=== PATIENT | male | born 1965 | race Caucasian/White ===

== ENCOUNTER 2018-07-10 10:25 | Observation (INO) | payer BC ==
[2018-07-10] MEDS ORDERED: ONDANSETRON 4 MG/2 ML VIAL IVP STA (11:29)
[2018-07-10] MEDS ORDERED: SODIUM CHLORIDE 0.9% 1,000 ML IV STA (11:29)
[2018-07-10] MEDS ORDERED: KETOROLAC 30 MG/ML 1 ML VIAL IVP STA (11:29)
[2018-07-10] MEDS ORDERED: MORPHINE SULFATE 4 MG/ML SYRINGE IV STA (11:29)
--- NOTE | 2018-07-10 11:55 | ED ---
Abdominal Pain HPI - General Chief Complaint: Abdominal Pain Stated Complaint: abdominal pain Time Seen by Provider: 07/10/18 11:07 Source: patient, RN notes reviewed, old records reviewed Mode of arrival: ambulatory - History of Present Illness Initial Comments: Pelvis a 52-year-old male who presents emergency department today with complaints of severe left-sided abdominal distention and pain. Patient states that he had a bowel movement yesterday. He reports has not been passing gas. Patient states that he has had slight cough the past week, he is getting over it at this time. He complained of some abdominal muscle discomfort. Patient denies any fever or chills. Denies any associated back pain. He complains of vertiginous and distention and nausea. - Related Data Home Medications Medication Instructions Recorded Confirmed No Known Home Medications 07/10/18 07/10/18 Allergies Allergy/AdvReac Type Severity Reaction Status Date / Time No Known Allergies Allergy Unverified 07/10/18 11:29 Review of Systems ROS Statement: Those systems with pertinent positive or pertinent negative responses have been documented in the HPI. ROS Other: All systems not noted in ROS Statement are negative. Past Medical History Past Medical History: No Reported History History of Any Multi-Drug Resistant Organisms: None Reported Past Surgical History: No Surgical Hx Reported Past Psychological History: No Psychological Hx Reported Smoking Status: Never smoker Past Alcohol Use History: None Reported Past Drug Use History: None Reported General Exam - General Exam Comments Initial Comments: This is a 52-year-old male. Alert and oriented 3. Patient appears in moderate discomfort. General appearance: alert, in no apparent distress Head exam: Present: atraumatic, normocephalic, normal inspection Eye exam: Present: normal appearance, PERRL, EOMI. Absent: scleral icterus, conjunctival injection, periorbital swelling ENT exam: Present: normal exam, mucous membranes moist Neck exam: Present: normal inspection. Absent: tenderness, meningismus, lymphadenopathy Respiratory exam: Present: normal lung sounds bilaterally. Absent: respiratory distress, wheezes, rales, rhonchi, stridor Cardiovascular Exam: Present: regular rate, normal rhythm, normal heart sounds. Absent: systolic murmur, diastolic murmur, rubs, gallop, clicks GI/Abdominal exam: Present: distended (Left sided abdominal distention), normal bowel sounds. Absent: soft, tenderness, guarding, rebound, rigid Extremities exam: Present: normal inspection, full ROM, normal capillary refill. Absent: tenderness, pedal edema, joint swelling, calf tenderness Back exam: Present: normal inspection Neurological exam: Present: alert, oriented X3, CN II-XII intact Psychiatric exam: Present: normal affect, normal mood Skin exam: Present: warm, dry, intact, normal color. Absent: rash Course Vital Signs 07/10/18 07/10/18 10:40 12:43 Temperature 98.0 F Pulse Rate 63 67 Respiratory 22 18 Rate Blood Pressure 169/102 152/98 O2 Sat by Pulse 100 96 Oximetry Medical Decision Making - Medical Decision Making Patient is a 52-year-old male presents for instructed today with onset of left- sided abdominal distention and pain. He has significant guarding in the pain with palpation over the left quadrant. Patient reports no falls or trauma. He did have a slight cough for last week. He's had normal stools yesterday. Patient labwork was reviewed and unremarkable. With this tenderness and distention computed tomography scan was completed. There is evidence of the significant rectus sheath hematoma measuring 14 cm x 6 cm x 8 7 m. Patient seemed a little bit stable. There is concern for active bleeding from the site at this time. Patient's case discussed with Dr. Harris who discussed case with Dr. Goodwin. Recommended admitting Dr. Suarez with consult to patient's PCP. Patient will be having a type and screen drawn a repeat CBCs. - Lab Data Result diagrams: 07/10/18 11:25 07/10/18 11:25 Lab Results 07/10/18 07/10/18 07/10/18 Range/Units 11:25 11:25 12:45 WBC 11.0 H (3.8-10.6) k/uL RBC 5.74 (4.30-5.90) m/uL Hgb 16.3 (13.0-17.5) gm/dL Hct 46.4 (39.0-53.0) % MCV 80.9 (80.0-100.0) fL MCH 28.4 (25.0-35.0) pg MCHC 35.1 (31.0-37.0) g/dL RDW 12.9 (11.5-15.5) % Plt Count 196 (150-450) k/uL Neutrophils % 85 % Lymphocytes % 11 % Monocytes % 3 % Eosinophils % 0 % Basophils % 0 % Neutrophils # 9.3 H (1.3-7.7) k/uL Lymphocytes # 1.2 (1.0-4.8) k/uL Monocytes # 0.3 (0-1.0) k/uL Eosinophils # 0.1 (0-0.7) k/uL Basophils # 0.0 (0-0.2) k/uL Sodium 138 (137-145) mmol/L Potassium 4.5 (3.5-5.1) mmol/L Chloride 108 H (98-107) mmol/L Carbon Dioxide 21 L (22-30) mmol/L Anion Gap 9 mmol/L BUN 18 (9-20) mg/dL Creatinine 0.89 (0.66-1.25) mg/dL Est GFR (CKD-EPI)AfAm >90 (>60 ml/min/1.73 sqM) Est GFR (CKD-EPI)NonAf >90 (>60 ml/min/1.73 sqM) Glucose 152 H (74-99) mg/dL Calcium 9.5 (8.4-10.2) mg/dL Total Bilirubin 0.9 (0.2-1.3) mg/dL AST 48 (17-59) U/L ALT 68 (21-72) U/L Alkaline Phosphatase 66 (38-126) U/L Total Protein 6.8 (6.3-8.2) g/dL Albumin 4.2 (3.5-5.0) g/dL Amylase 59 (30-110) U/L Lipase 114 (23-300) U/L Urine Color Yellow Urine Appearance Clear (Clear) Urine pH 6.0 (5.0-8.0) Ur Specific Hayes 1.048 H (1.001-1.035) Urine Protein Trace H (Negative) Urine Glucose (UA) Negative (Negative) Urine Ketones Negative (Negative) Urine Blood Negative (Negative) Urine Nitrite Negative (Negative) Urine Bilirubin Negative (Negative) Urine Urobilinogen <2.0 (<2.0) mg/dL Ur Leukocyte Esterase Negative (Negative) - Radiology Data Radiology results: report reviewed Large left rectus sheath hematoma measuring 13.7 x 8.6 and meters. Lehigh clot signs suggesting for active extravasation at the same hematoma. Correlate for any anticoagulation status and correlate for hematocrit hemoglobin most. Additionally she is intramuscular bleeding adjacent to the left anterior abdo marv wall muscle strain measuring 4.5 cm thick. Mild hepatosplenomegaly. An additional paresthesias small hiatal hernia. Disposition Clinical Impression: Rectus sheath hematoma Disposition: ADMITTED IP TO THIS HOSP Condition: Stable Is patient prescribed a controlled substance at d/c from ED?: No Referrals: Mingo Castillo MD [Primary Care Provider] - 1-2 days Time of Disposition: 13:42
[2018-07-10 12:09] LABS: ALT 68 U/L (21-72); AST 48 U/L (17-59); Albumin 4.2 g/dL (3.5-5.0); Alkaline Phosphatase 66 U/L (38-126); Amylase 59 U/L (30-110); Anion Gap 9 mmol/L; Basophils % (A) 0 %; Blood Urea Nitrogen 18 mg/dL (9-20); Calcium 9.5 mg/dL (8.4-10.2); Carbon Dioxide 21 mmol/L (22-30); Chloride 108 mmol/L (98-107); Eosinophils # (A) 0.1 k/uL (0-0.7); Eosinophils % (A) 0 %; Glucose 152 mg/dL (74-99); HCT 46.4 % (39.0-53.0); HGB 16.3 gm/dL (13.0-17.5); Lipase 114 U/L (23-300); Lymphocytes # (A) 1.2 k/uL (1.0-4.8); Lymphocytes % (A) 11 %; MCH 28.4 pg (25.0-35.0); MCHC 35.1 g/dL (31.0-37.0); MCV 80.9 fL (80.0-100.0); Mean Platelet Volume 7.9; Monocytes # (A) 0.3 k/uL (0-1.0); Monocytes % (A) 3 %; Neutrophils # (A) 9.3 k/uL (1.3-7.7); Neutrophils % (A) 85 %; Platelet Count 196 k/uL (150-450); Potassium 4.5 mmol/L (3.5-5.1); RBC 5.74 m/uL (4.30-5.90); RDW 12.9 % (11.5-15.5); Sodium 138 mmol/L (137-145); Total Bilirubin 0.9 mg/dL (0.2-1.3); Total Protein 6.8 g/dL (6.3-8.2)
--- NOTE | 2018-07-10 12:28 | XR ---
EXAMINATION TYPE: XR chest 2V DATE OF EXAM: 07/10/2018 COMPARISON: None HISTORY: Left upper quadrant pain TECHNIQUE: Frontal and lateral views of the chest are obtained. FINDINGS: There is no focal air space opacity, pleural effusion, or pneumothorax seen. The cardiac silhouette size is mildly enlarged. The osseous structures are intact. IMPRESSION: No acute cardiopulmonary process.
--- NOTE | 2018-07-10 12:32 | CT ---
EXAMINATION TYPE: CT abdomen pelvis w con DATE OF EXAM: 07/10/2018 COMPARISON: NONE HISTORY: 52-year-old male with abdominal pain TECHNIQUE: Contiguous axial scanning of the abdomen and pelvis following administration of 100 ml Iso sasha 300 IV contrast. Delayed images through the kidneys and coronal/sagittal reconstructions perform ed. CT DLP: 1568.4 mGycm Automated exposure control for dose reduction was used. FINDINGS: Heart normal size without pericardial effusion. Some strandy atelectasis or scarring in the lower jeni gs. No pleural effusion. Small hiatal hernia. Mildly ectatic aorta the thoracoabdominal junction and 2.7 cm. Incidental retroaortic left renal vein . Liver mildly enlarged at 18.6 cm with low attenuation suggesting fatty infiltration. Portal venous sy stem is patent. No biliary ductal dilatation. Gallbladder, adrenal glands, right kidney, and pancreas appear within normal limits. Spleen mildly enlarged at 15.2 cm. No dilated small bowel, free fluid, or free air. Tiny fatty umbilical hernia. Normal appendix. Mild scattered stool in the right side of the colon. No pericolonic inflammatory eveline nge. Bladder is urine distended. Small to moderate sized fatty indirect left inguinal hernia. Pelvic phleb olith. No abnormal fluid collection the pelvis or pelvic lymphadenopathy. Bones: Mild degenerative spurring at the hips. Accentuated lumbar lordosis. No osseous destructive pr ocess. There is a large focal hematoma involving the left rectus sheath with central clot sign suggesting ac tive extravasation. The hematoma measures 8.6 cm wide by 6.0 cm AP by 13.7 cm craniocaudal. However, in addition to this, there is diffuse bleeding causing asymmetric thickening of the left anterior and anterolateral abdominal wall musculature. In the supraumbilical region, the abdominal wall measures 4.5 cm thick. Just below the level of the umbilicus, asymmetric thickening measures up to 2.5 cm pres ently 1.0 cm on the other side. IMPRESSION: 1. LARGE LEFT RECTUS SHEATH HEMATOMA MEASURING 13.7 X 8.6 CM. SENTINEL CLOT SIGN SUGGESTING ACTIVE EX TRAVASATION AT THE SITE OF HEMATOMA. CORRELATE FOR ANY ANTICOAGULATION STATUS END CORRELATE WITH WIN TOCRIT/HEMOGLOBIN LEVELS. 2. ADDITIONAL MORE DIFFUSE INTRAMUSCULAR BLEEDING THICKENING THE ADJACENT LEFT ANTERIOR ABDOMINAL WAL L MUSCULATURE UP TO 4.5 CM THICK PRIMARILY ABOVE THE LEVEL OF THE UMBILICUS. 3. MILD HEPATOSPLENOMEGALY (LIVER 18.6 CM AND SPLEEN 15.2 CM). 4. ADDITIONAL HEPATIC STEATOSIS AND SMALL HIATAL HERNIA.
[2018-07-10 13:14] LABS: Appearance,Urine Clear (Clear); Bilirubin,Urine Negative (Negative); Blood,Urine Negative (Negative); Color,Urine Yellow; Glucose,Urine (UA) Negative (Negative); Ketones,Urine Negative (Negative); Leukocyte Esterase,Urine Negative (Negative); Nitrite,Urine Negative (Negative); Protein,Urine Trace (Negative); Urobilinogen,Urine <2.0 mg/dL (<2.0)
[2018-07-10 13:28] LABS: Specific Gravity,Urine 1.048 (1.001-1.035)
[2018-07-10] MEDS ORDERED: ONDANSETRON 4 MG/2 ML VIAL IVP PRN (13:42)
[2018-07-10] MEDS ORDERED: NALOXONE 0.4 MG/ML 1 ML VIAL IV PRN (13:42)
[2018-07-10] MEDS ORDERED: HYDROcodone/APAP 5-325MG 1 EACH TAB PO PRN (13:42)
[2018-07-10 14:00] LABS: Prothrombin Time 10.3 sec (9.0-12.0)
[2018-07-10] MEDS: MORPHINE SULFATE 4 MG/ML SYRINGE IV PRN ×2 (15:33→20:44)
[2018-07-10 15:58] LABS: Basophils % (A) 0 %; Eosinophils % (A) 0 %; HCT 41.1 % (39.0-53.0); HGB 14.1 gm/dL (13.0-17.5); Lymphocytes % (A) 10 %; MCH 28.4 pg (25.0-35.0); MCHC 34.4 g/dL (31.0-37.0); MCV 82.5 fL (80.0-100.0); Mean Platelet Volume 7.6; Monocytes # (A) 0.3 k/uL (0-1.0); Monocytes % (A) 3 %; Neutrophils # (A) 8.6 k/uL (1.3-7.7); Neutrophils % (A) 86 %; Platelet Count 175 k/uL (150-450); RBC 4.99 m/uL (4.30-5.90)
[2018-07-10] MEDS: SODIUM CHLORIDE 0.9% 1,000 ML IV SCH (18:29)
[2018-07-11] MEDS ORDERED: PANTOPRAZOLE 40 MG/10 ML VIAL IV SCH (09:00)
[2018-07-11 10:25] LABS: HCT 37.8 % (39.0-53.0); HGB 12.9 gm/dL (13.0-17.5); MCV 85.4 fL (80.0-100.0); Mean Platelet Volume 6.5; Platelet Count 161 k/uL (150-450); RBC 4.43 m/uL (4.30-5.90); RDW 13.1 % (11.5-15.5); WBC 9.2 k/uL (3.8-10.6)
[2018-07-11 10:44] LABS: Anion Gap 6 mmol/L; Blood Urea Nitrogen 20 mg/dL (9-20); Carbon Dioxide 26 mmol/L (22-30); Chloride 108 mmol/L (98-107); Glucose 114 mg/dL (74-99); Potassium 4.2 mmol/L (3.5-5.1); Sodium 140 mmol/L (137-145)
--- NOTE | 2018-07-11 11:13 | P.CONS ---
History of Present Illness - History of Present Illness 52-year-old healthy male presented the emergency room with complaints of pain to his left flank. Was found to have a large left rectus sheath hematoma. Noted hemoglobin on arrival 16 3 at present hemoglobin 12.9. Patient states that he's had a cough for 1 week denies any other injury Review of Systems Respiratory: Reports cough Gastrointestinal: Reports abdominal pain Past Medical History Past Medical History: No Reported History History of Any Multi-Drug Resistant Organisms: None Reported Past Surgical History: Hernia Repair Past Anesthesia/Blood Transfusion Reactions: No Reported Reaction Past Psychological History: No Psychological Hx Reported Smoking Status: Never smoker Past Alcohol Use History: None Reported Past Drug Use History: None Reported - Past Family History Father Family Medical History: Cancer Additional Family Medical History / Comment(s): prostate Mother Family Medical History: Hypertension Additional Family Medical History / Comment(s): cardiac stent Medications and Allergies Home Medications Medication Instructions Recorded Confirmed Type No Known Home Medications 07/10/18 07/10/18 History Allergies Allergy/AdvReac Type Severity Reaction Status Date / Time No Known Allergies Allergy Unverified 07/10/18 11:29 Physical Exam Vitals: Vital Signs Temp Pulse Pulse Resp BP BP Pulse Ox 07/11/18 08:00 18 07/11/18 06:33 99.3 F 92 18 151/89 92 L 07/10/18 23:00 98.7 F 81 18 150/85 95 07/10/18 16:10 98.2 F 76 20 156/100 96 07/10/18 15:25 98.0 F 68 18 162/86 97 07/10/18 12:43 67 18 152/98 96 Intake and Output 07/10/18 07/11/18 07/11/18 22:59 06:59 14:59 Intake Total 0 0 Output Total 200 Balance -200 0 Intake: Oral 0 0 Output: Urine 200 Other: Voiding Method Toilet # Voids 1 - Constitutional General appearance: mild distress - EENT Eyes: PERRLA Ears: bilateral: normal - Neck Neck: normal ROM - Respiratory Respiratory: bilateral: CTA - Cardiovascular Rhythm: regular - Gastrointestinal General gastrointestinal: soft Localized gastrointestinal: tender: LUQ - Integumentary Integumentary: normal - Neurologic Neurologic: CNII-XII intact - Musculoskeletal Musculoskeletal: generalized weakness - Psychiatric Psychiatric: A&O x's 3, appropriate affect, intact judgment & insight Results CBC & Chem 7: 07/11/18 10:04 07/11/18 10:04 Labs: Abnormal Lab Results - Last 24 Hours (Table) 07/10/18 07/10/18 07/10/18 Range/Units 11:25 11:25 12:45 WBC 11.0 H (3.8-10.6) k/uL Hgb (13.0-17.5) gm/dL Hct (39.0-53.0) % Neutrophils # 9.3 H (1.3-7.7) k/uL Chloride 108 H (98-107) mmol/L Carbon Dioxide 21 L (22-30) mmol/L Glucose 152 H (74-99) mg/dL Ur Specific Elim 1.048 H (1.001-1.035) Urine Protein Trace H (Negative) 07/10/18 07/11/18 07/11/18 Range/Units 15:23 10:04 10:04 WBC (3.8-10.6) k/uL Hgb 12.9 L (13.0-17.5) gm/dL Hct 37.8 L (39.0-53.0) % Neutrophils # 8.6 H (1.3-7.7) k/uL Chloride 108 H (98-107) mmol/L Carbon Dioxide (22-30) mmol/L Glucose 114 H (74-99) mg/dL Ur Specific Elim (1.001-1.035) Urine Protein (Negative) Chest x-ray: report reviewed CT scan - abdomen: report reviewed Assessment and Plan Plan: assessment rectus sheath hematoma large 13.7 x 8.6 cm Plan Will monitor hemoglobin aND RENAL FUNCTION
--- NOTE | 2018-07-11 13:17 | P.DS ---
Providers Date of admission: 07/10/18 14:28 Expected date of discharge: 07/11/18 Attending physician: Albert Goodwin Consults: 07/10/18 13:42 Consult Physician Stat Consulting Provider: Mingo Castillo Consult Reason/Comments: rectus sheath hematoma Do you want consulting provider notified?: Yes Primary care physician: Mingo Castillo Hospital Course: Document serves as H&P and discharge summary! 52-year-old male presented to the emergency room with a chief complaint of left-sided abdominal distention. Patient reports he has been sick recently and has been coughing a lot for the past week. He was found to have a left rectus sheath hematoma. Patient's hemoglobin has been stable. Patient's pain is tolerable. He is being evaluated by Dr. Goodwin and is cleared for discharge home today. He is to follow up in 1 week. Please see EMR for further hospital course details. Discharge diagnosis: 1. Rectus sheath hematoma Nurse practitioner note has been reviewed by physician. Signing provider agrees with the documented findings, assessment, and plan of care. Patient Condition at Discharge: Stable Plan - Discharge Summary Discharge Rx Participant: No New Discharge Prescriptions: New HYDROcodone/APAP 5-325MG [Edmond 5-325] 1 tab PO Q6HR PRN 3 Days #12 tab PRN Reason: Pain Discharge Medication List HYDROcodone/APAP 5-325MG [Edmond 5-325] 1 tab PO Q6HR PRN 3 Days #12 tab 07/11/18 [Rx] Follow up Appointment(s)/Referral(s): Mingo Castillo MD [Primary Care Provider] - 1-2 days Albert Goodwin MD [STAFF PHYSICIAN] - 1 Week Activity/Diet/Wound Care/Special Instructions: No lifting over 5 pounds Regular diet Discharge Disposition: HOME SELF-CARE
[2018-07-11 14:34] VITALS: BP 132/83; PULSE 99; RESP 16; TEMP 100
[2018-07-11] MEDS: SODIUM CHLORIDE 0.9% 1,000 ML IV SCH (14:44)
== END 2018-07-11 14:45 | disposition home or self-care (01) ==
LOC: EC 10:25 → UNDOADMOB 14:28 → 4SSUR 14:28 → 4MS4W 14:56 → 4SSUR 14:56
PROVIDERS: ADMIT Surgery; ATTEND Surgery
DX: M79.81 Nontraumatic hematoma of soft tissue (principal); Z82.49 Family history of ischemic heart disease and other diseases of the circulatory system
CPT/HCPCS: 36415; 71046; 74177; 80048; 80053; 81003; 82150; 83690; 85025; 85027; 85610; 85730; 86850; 86900; 86901; 96361; 96374; 96375; 96376; 99285

== ENCOUNTER 2021-04-23 07:58 | Day surgery (SDC) | payer BC ==
[2021-04-21 12:11] VITALS: BMI 32.1
[~2021-04-23 07:58] MED LIST: LACTATED RINGERS 1,000 ML IV SCH
[2021-04-23 08:22] VITALS: TEMP 97.9
[2021-04-23] MEDS ORDERED: LIDOCAINE 1% (10MG/ML) FOR IV START INTRADERMA ONE (08:34)
[2021-04-23] MEDS ORDERED: PROPOFOL 10 MG/ML 20 ML VIAL IV ONE (09:35)
--- NOTE | 2021-04-23 09:55 | P.PCN ---
Date of Procedure: 04/23/21 Procedure(s) Performed: BRIEF HISTORY: Patient is a 55-year-old pleasant male scheduled for an elective colonoscopy as a part of screening for colorectal neoplasia. PROCEDURE PERFORMED: Colonoscopy. PREOPERATIVE DIAGNOSIS: Screening for colon cancer. IV sedation per Anesthesia. PROCEDURE: After informed consent was obtained, the patient, was brought into the endoscopy unit. IV sedation was administered by Anesthesia under continuous monitoring. Digital rectal examination was normal. Initially the Olympus CF-160 flexible video colonoscope was then inserted in the rectum, gradually advanced into the cecum without any difficulty. Careful examination was performed as the scope was gradually being withdrawn. Ileocecal valve and the appendiceal orifice were visualized and appeared normal. Prep was excellent. Mucosa of the cecum, ascending colon, transverse colon, descending colon, sigmoid colon, and rectum appeared normal. Retroflexion was performed in the rectum and small internal hemorrhoids were seen. The patient tolerated the procedure well. IMPRESSION: Normal-appearing colon from rectum to cecum with no evidence of colorectal neoplasia . Small internal hemorrhoids RECOMMENDATIONS: Findings of this examination were discussed with the patient as well as his family. He was advised to be a high-fiber diet and take fiber supplements a regular basis. He can have a repeat screening colonoscopy in 10 years..
[2021-04-23 10:23] VITALS: BP 102/57; PULSE 70; RESP 14
== END 2021-04-23 10:50 | disposition home or self-care (01) ==
LOC: ORWHC2ENDO 07:58
PROVIDERS: ATTEND Internal Medicine Gastroenterology
DX: Z12.11 Encounter for screening for malignant neoplasm of colon (principal); K64.8 Other hemorrhoids
CPT/HCPCS: 45378; J2704